=== PATIENT | female | born 1930 | race Caucasian/White ===

== ENCOUNTER 2021-02-05 13:46 | Emergency (ER) | payer MEDICARE, OTHER ==
[~2021-02-05] VITALS: Ht 162.6 cm; Wt 40.4 kg
--- NOTE | 2021-02-05 14:00 | NUR ---
JESSIE RAAyan From home "constipated xcouple days was seen in [place] yesterday. Patient a/ox3, breathing even and unlabored, no sob noted. Needs attended.
[2021-02-05] MEDS ORDERED: IV NS 0.9% 500 ML BAG IV ONE (14:30)
[2021-02-05 14:53] LABS: BASOPHILS % (AUTO) 0.8 % (0.0-2.0); EOSINOPHILS % (AUTO) 1.5 % (0.0-6.0); HEMATOCRIT 31 % (33-45); HEMOGLOBIN 10.4 g/dL (11.5-14.8); LYMPHOCYTES % (AUTO) 16.9 % (20.0-44.0); MEAN CORPUSCULAR HGB CONC 33 g/dl (31.0-36.0); MEAN CORPUSCULAR VOLUME 93 fL (82-100); MONOCYTES # (AUTO) 0.4 K/uL (0.1-1.30); MONOCYTES % (AUTO) 7.4 % (2.0-12.0); NEUTROPHILS # (AUTO) 4.4 K/uL (1.8-8.9); NEUTROPHILS % (AUTO) 73.4 % (43.0-81.0); PLATELET COUNT (AUTO) 343 K/uL (150-450); RED BLOOD CELL COUNT(AUTO) 3.36 MIL/uL (4.0-5.2); WHITE BLOOD COUNT (AUTO) 5.9 K/uL (4.3-11.0)
[2021-02-05 14:59] LABS: CALCIUM, SERUM 8.6 mg/dL (8.5-10.1); CARBON DIOXIDE 37 mmol/L (21-32); CHLORIDE 88 mmol/L (98-107); CREATININE 0.5 mg/dL (0.6-1.3); GLUCOSE 135 mg/dL (74-106); POTASSIUM 4.4 mmol/L (3.5-5.1); SODIUM SERUM 128 mmol/L (136-145); UREA NITROGEN, BLOOD 11 mg/dL (7-18)
[2021-02-05 15:16] LABS: ALANINE AMINOTRANSFERASE 19 U/L (12-78); ALBUMIN 2.9 g/dL (3.4-5.0); ALKALINE PHOSPHATASE 89 U/L (46-116); ASPARTATE AMINOTRANSFERASE 17 U/L (15-37); BILIRUBIN,DIRECT 0.3 mg/dL (0.0-0.2); BILIRUBIN,TOTAL 0.7 mg/dL (0.2-1.0); LIPASE 23 U/L (73-393); TOTAL PROTEIN, SERUM 6.6 g/dL (6.4-8.2)
[2021-02-05] MEDS ORDERED: CARV3.122 PO (15:24)
[2021-02-05] MEDS ORDERED: FOLI0.4T6 PO (15:24)
[2021-02-05] MEDS ORDERED: SPIR25TA6 PO (15:24)
[2021-02-05] MEDS ORDERED: METF-837 PO (15:24)
[2021-02-05] MEDS ORDERED: WARF3TAB59 PO (15:24)
[2021-02-05] MEDS ORDERED: PRED5TAB PO (15:24)
[2021-02-05 16:37] LABS: BILIRUBIN,URINE NEGATIVE (NEGATIVE); COLOR,URINE YELLOW (YELLOW); LEUKOCYTE ESTERASE ,URINE MODERATE (NEGATIVE); NITRITE, URINE POSITIVE (NEGATIVE); PROTEIN,URINE 30 mg/dl (NEGATIVE); UGLUCOSE NEGATIVE (NEGATIVE); UROBILINOGEN,URINE 0.2 EU/dL (0.2)
[2021-02-05] MEDS ORDERED: CEFTRIAXONE 1 G in IV D5W 50 ML IV ONE (17:00)
[2021-02-05 17:01] LABS: BACTERIA,URINE 1+ /HPF (None Seen); CALCIUM OXALATE CRYSTALS,UR Few /HPF (None Seen)
[2021-02-05] MEDS ORDERED: CEFTRIAXONE 1GM BAG (ER ONLY) 50 ML IV ONE (17:20)
--- NOTE | 2021-02-05 17:43 | NUR ---
Patient a/ox4, kept comfortable. Needs attended.
[2021-02-05] MEDS ORDERED: CEPH500C2 PO (17:49)
[2021-02-05] MEDS ORDERED: POLY17PO4 PO (17:49)
--- NOTE | 2021-02-05 18:22 | NUR ---
PER PATIENT, "SHE CANNOT PEE" INFORMED DR. MADERA, RECEIVED ORDER FOR COLEMAN CATHETER.
--- NOTE | 2021-02-05 18:29 | NUR ---
COLEMAN CATHETER INSERTED VIA STERILE TECHNIQUE. FR16. URINE OUTPUT 100ML.
--- NOTE | 2021-02-05 18:45 | NUR ---
LAUREN [phone] JONO [phone]
--- NOTE | 2021-02-05 18:47 | NUR ---
CHEYENNE DAUGHTER [phone] WILL CALL US BACK FOR CALENDER LET OFF OPERATOR TO OPEN HOUSE DOOR.
--- NOTE | 2021-02-05 18:54 | NUR ---
[facility] CALLED ETA 30-45 MINS.
--- NOTE | 2021-02-05 19:00 | NUR ---
TOTAL URINE OUTPUT 600ML.
--- NOTE | 2021-02-05 19:10 | NUR ---
DISCHARGE INSTRUCTIONS PROVIDED OVER THE PHONE TO PATIENT'S DAUGHTER. PATIENT WILL BE DISCHARGED WITH A COLEMAN CATHETER AND NEEDS TO FOLLOW UP WITH A PRIMARY CARE DOCTOR. PATIENT'S PRESCRIPTIONS FOR UTI AND CONSTIPATION. WAITING FOR TRANSPORTATION AT THIS TIME.
--- NOTE | 2021-02-05 19:45 | NUR ---
report given to transportation. pt being transferred to home via ambulance, in stable condition with rx given.
[2021-02-05 19:46] VITALS: BP 135/70
== END 2021-02-05 20:14 | disposition home or self-care (01) ==
LOC: ER 13:47
DX: N39.0 Urinary tract infection, site not specified (principal); K59.00 Constipation, unspecified; K80.20 Calculus of gallbladder without cholecystitis without obstruction; K86.89 Other specified diseases of pancreas; E87.1 Hypo-osmolality and hyponatremia; E87.3 Alkalosis; D64.9 Anemia, unspecified; E11.9 Type 2 diabetes mellitus without complications; E78.5 Hyperlipidemia, unspecified; I11.0 Hypertensive heart disease with heart failure; I50.9 Heart failure, unspecified; M81.0 Age-related osteoporosis without current pathological fracture; I48.91 Unspecified atrial fibrillation; Z79.899 Other long term (current) drug therapy; Z79.01 Long term (current) use of anticoagulants; Z79.84 Long term (current) use of oral hypoglycemic drugs
CPT/HCPCS: 36415; 71045; 74176; 80048; 80076; 81001; 83690; 84484; 85025; 85730; 87086; 87186; 93005; 96365; 99285; J0696 ×2; J7040; J7060

== ENCOUNTER 2021-03-24 20:32 | Inpatient (IN) | payer MEDICARE, OTHER ==
[~2021-03-24] VITALS: Ht 167.6 cm; Wt 83.9 kg
[~2021-03-24 20:32] MED LIST: CARV3.122 PO; CEPH500C2 PO; FOLI0.4T6 PO; METF-837 PO; POLY17PO4 PO; PRED5TAB PO; SPIR25TA6 PO; WARF3TAB59 PO
--- NOTE | 2021-03-24 20:44 | NUR ---
PATIENT BIBRA C/O HAVING SHORTNESS OF BREATH. PER CARPET REPAIRER PATIENTS O2SAT AT HOME WAS 88, THEN 92. PATIENT ALERT AND ORIENTED X3. PATIENT ARRIVED ON A STRETCHER UNKNOWN IF SHE CAN AMBULATE.
[2021-03-24] MEDS ORDERED: LIDOCAINE 1%-EPI 1:100,000 20 ML VIAL ONE (20:57)
[2021-03-24 21:42] LABS: BASOPHILS % (AUTO) 1.1 % (0.0-2.0); HEMATOCRIT 37 % (33-45); HEMOGLOBIN 11.9 g/dL (11.5-14.8); LYMPHOCYTES # (AUTO) 1.4 K/uL (0.8-4.8); LYMPHOCYTES % (AUTO) 31.4 % (20.0-44.0); MEAN CORPUSCULAR HGB CONC 32 g/dl (31.0-36.0); MEAN CORPUSCULAR VOLUME 92 fL (82-100); MONOCYTES # (AUTO) 0.3 K/uL (0.1-1.30); MONOCYTES % (AUTO) 7.6 % (2.0-12.0); NEUTROPHILS # (AUTO) 2.5 K/uL (1.8-8.9); NEUTROPHILS % (AUTO) 56.9 % (43.0-81.0); PLATELET COUNT (AUTO) 226 K/uL (150-450); RED BLOOD CELL COUNT(AUTO) 3.99 MIL/uL (4.0-5.2); WHITE BLOOD COUNT (AUTO) 4.3 K/uL (4.3-11.0)
[2021-03-24 21:52] LABS: CALCIUM, SERUM 8.6 mg/dL (8.5-10.1); CARBON DIOXIDE 33 mmol/L (21-32); CHLORIDE 92 mmol/L (98-107); CREATININE 0.5 mg/dL (0.6-1.3); GLUCOSE 125 mg/dL (74-106); POTASSIUM 4.4 mmol/L (3.5-5.1); SODIUM SERUM 127 mmol/L (136-145); UREA NITROGEN, BLOOD 8 mg/dL (7-18)
--- NOTE | 2021-03-24 22:25 | NUR ---
COVID SWAB DONE AND SENT TO LAB
[2021-03-24] MEDS ORDERED: FUROSEMIDE 20 MG/2 ML VIAL IV ONE (22:30)
[2021-03-24] MEDS ORDERED: ONDANSETRON HCL/PF 4 MG/2 ML VIAL IVP PRN (23:30)
[2021-03-24] MEDS ORDERED: MAG HYDROX/AL HYDROX/SIMETH 30 ML UDC PO PRN (23:30)
[2021-03-24] MEDS ORDERED: Z GUARD REMEDY 2 OZ OINT TP PRN (23:30)
[2021-03-24] MEDS ORDERED: ZOLPIDEM TARTRATE 5 MG TABLET PO PRN (23:30)
[2021-03-24] MEDS ORDERED: MAGNESIUM HYDROXIDE 30 ML UDC PO PRN (23:30)
[2021-03-24] MEDS ORDERED: ACETAMINOPHEN 325 MG TABLET PO PRN (23:30)
--- NOTE | 2021-03-25 01:08 | NUR ---
tele [phone]
--- NOTE | 2021-03-25 01:48 | NUR ---
REPORT GIVEN TO REYNA GUZMAN
--- NOTE | 2021-03-25 02:13 | NUR ---
TRANSFERRING PT TO 324 PER ACLS
[2021-03-25 02:30] VITALS: BP 129/65
--- NOTE | 2021-03-25 03:47 | NUR ---
ADMISSION NOTES RECEIVED PT VIA BRIDGER ACCOMPANIED BY 2 ER PERSONNEL @0215. AOx4. ABLE TO MAKE NEEDS KNOWN. ON 3 L/MIN VIA NASAL CANNULA AND TOLERATING WELL. NO SOB NOTED. NO S/SX OF RESPIRATORY DISTRESS NOTED. IV ACCESS IN L FA#20. IV IS INTACT, PATENT, AND FLUSHING WELL. COLEMAN CATHETER DRAINING CLEAR YELLOW URINE. TELE MONITOR DETECTS ATRIAL FIBRILLATION WITH RATE OF 40-55. SAFETY PRECAUTIONS IN PLACE: BED IN LOWEST, LOCKED POSITION, SIDERAILS UPx2, AND BRAKES ON. TABLE AND CALL LIGHT WITHIN REACH. WILL CONTINUE TO MONITOR.
[2021-03-25 04:00] VITALS: BP 127/53
--- NOTE | 2021-03-25 06:58 | NUR ---
RN CLOSING NOTES PT IN BED, ASLEEP, AWAKENS TO VERBAL STIMULI. AOx4. ABLE TO MAKE NEEDS KNOWN. ON 3 L/MIN VIA NASAL CANNULA AND TOLERATING WELL. NO SOB NOTED. NO S/SX OF RESPIRATORY DISTRESS NOTED. IV ACCESS IN L FA#20. IV IS INTACT, PATENT, AND FLUSHING WELL. COLEMAN CATHETER DRAINING CLEAR YELLOW URINE. TELE MONITOR DETECTS ATRIAL FIBRILLATION WITH RATE OF 40-55. ALL NEEDS MET. PT KEPT CLEAN AND DRY. SAFETY PRECAUTIONS IN PLACE: BED IN LOWEST, LOCKED POSITION, SIDERAILS UPx2, AND BRAKES ON. TABLE AND CALL LIGHT WITHIN REACH. WILL ENDORSE TO ONCOMING SHIFT FOR LINNEA.
--- NOTE | 2021-03-25 07:15 | NUR ---
UNEMPLOYMENT CLAIMS ADJUDICATOR OPENING NOTE PATIENT RECEIVED AWAKE LYING IN BED. PATIENT A/OX3. NO S/S OF DISTRESS. NO PAIN REPORTED AT THIS TIME. IV LFA WRIST #20 G SL. SAFETY MEASURES IN PLACE: BED AT LOWEST POSITION, RAILS UP X2, CALL CALDWELL WITHIN REACH. WILL CONTINUE TO MONITOR PATIENT THROUGHOUT SHIFT.
[2021-03-25 07:53] LABS: BASOPHILS % (AUTO) 1.1 % (0.0-2.0); EOSINOPHILS % (AUTO) 5.4 % (0.0-6.0); HEMATOCRIT 33 % (33-45); LYMPHOCYTES # (AUTO) 1.5 K/uL (0.8-4.8); LYMPHOCYTES % (AUTO) 35.5 % (20.0-44.0); MEAN CORPUSCULAR HGB CONC 33 g/dl (31.0-36.0); MEAN CORPUSCULAR VOLUME 92 fL (82-100); MONOCYTES # (AUTO) 0.5 K/uL (0.1-1.30); MONOCYTES % (AUTO) 12.3 % (2.0-12.0); NEUTROPHILS % (AUTO) 45.7 % (43.0-81.0); PLATELET COUNT (AUTO) 202 K/uL (150-450); RED BLOOD CELL COUNT(AUTO) 3.59 MIL/uL (4.0-5.2); WHITE BLOOD COUNT (AUTO) 4.3 K/uL (4.3-11.0)
[2021-03-25 08:43] LABS: ALBUMIN 2.6 g/dL (3.4-5.0); BILIRUBIN,TOTAL 0.4 mg/dL (0.2-1.0); CALCIUM, SERUM 8.1 mg/dL (8.5-10.1); CREATININE 0.6 mg/dL (0.6-1.3); MAGNESIUM 1.4 mg/dL (1.8-2.4); PHOSPHORUS 3.5 mg/dL (2.5-4.9); POTASSIUM 4.1 mmol/L (3.5-5.1); TOTAL PROTEIN, SERUM 5.5 g/dL (6.4-8.2)
[2021-03-25] MEDS: PANTOPRAZOLE 40 MG TABLET.DR PO SCH (09:33)
[2021-03-25] MEDS: predniSONE 5 MG TABLET PO SCH (09:33)
[2021-03-25] MEDS: SPIRONOLACTONE 25 MG TABLET PO SCH (09:33)
[2021-03-25] MEDS: FUROSEMIDE 40 MG/4 ML VIAL IV SCH (09:33)
[2021-03-25] MEDS ORDERED: MAGNESIUM OXIDE 400 MG TABLET PO ONE (11:00)
[2021-03-25] MEDS: ACETYLCYSTEINE 10% SOLN 400 MG/4 ML VIAL NEB SCH ×2 (15:28→23:49)
[2021-03-25] MEDS: METFORMIN XR 500 MG TAB.SR.24H PO SCH (17:26)
--- NOTE | 2021-03-25 18:32 | NUR ---
ROD BENDING MACHINE OPERATOR CLOSING NOTE PATIENT IS AWAKE IN HER BED. NO S/S OF DISTRESS; NO PAIN NOTED; COMFORT MEASURES PROVIDED. SKIN IS CLEAN, DRY, AND INTACT. IV LFA 20G. SAFETY MEASURES IN PLACE: BED AT LOWEST POSITION; RAILS UP X2; CALL CALDWELL WITHIN REACH.
--- NOTE | 2021-03-25 19:30 | NUR ---
TELE/RN OPENING NOTE RECEIVED PATIENT RESTING IN BED. AWAKE, ALERT AND ORIENTED X 3. ABLE TO MAKE NEEDS KNOWN. DENIES PAIN AT THIS TIME. CONTINUES ON O2 2L VIA NC WITH NO S/SX OF RESPIRATORY DISTRESS NOTED. IV ACCESS TO LEFT FOREARM #20G INTACT, PATENT AND SALINE LOCKED. CONTINUES ON TELE MONITOR WITH CURRENT READING AFIB HR 72. COLEMAN CATHETER IN PLACE DRAINING CLEAR, YELLOW URINE TO GRAVITY. CALL LIGHT WITHIN REACH. ASPIRATION, FALL AND SAFETY PRECAUTIONS MAINTAINED. WILL CONTINUE TO MONITOR.
[2021-03-25] MEDS: IPRATROPIUM NEB FS 0.5 MG/2.5 ML AMPUL.NEB NEB SCH (19:40)
[2021-03-25 20:00] VITALS: BP 110/74
[2021-03-26] MEDS: IPRATROPIUM NEB FS 0.5 MG/2.5 ML AMPUL.NEB NEB SCH ×4 (01:30→20:07)
--- NOTE | 2021-03-26 01:36 | NUR ---
RT NOTE PATIENT REFUSED BREATHING TREATMENT , PATIENT STABLE ON 2 LITERS NASAL CANNULA, NO SOB NOTED AT THIS TIME, NOTIFIED RN. Addendum: 03/26/21 at 0139 by ADE SAHA RT Amended: Links added.
--- NOTE | 2021-03-26 06:30 | NUR ---
TELE/RN CLOSING NOTE PATIENT CURRENTLY SLEEPING IN BED. ALERT AND ORIENTED X 3. ABLE TO MAKE NEEDS KNOWN. DENIES PAIN AT THIS TIME. CONTINUES ON O2 2L VIA NC WITH NO S/SX OF RESPIRATORY DISTRESS NOTED. IV ACCESS TO LEFT FOREARM #20G INTACT, PATENT AND SALINE LOCKED. CONTINUES ON TELE MONITOR WITH CURRENT READING SR HR 77. COLEMAN CATHETER IN PLACE DRAINING CLEAR, YELLOW URINE TO GRAVITY. CALL LIGHT WITHIN REACH. ASPIRATION, FALL AND SAFETY PRECAUTIONS MAINTAINED. WILL ENDORSE PLAN OF CARE TO ONCOMING SHIFT.
[2021-03-26 06:45] LABS: CALCIUM, SERUM 8.3 mg/dL (8.5-10.1); CREATININE 0.8 mg/dL (0.6-1.3); EOSINOPHILS % (AUTO) 6.6 % (0.0-6.0); HEMATOCRIT 35 % (33-45); HEMOGLOBIN 11.6 g/dL (11.5-14.8); LYMPHOCYTES # (AUTO) 1.3 K/uL (0.8-4.8); LYMPHOCYTES % (AUTO) 33.2 % (20.0-44.0); MEAN CORPUSCULAR HGB CONC 33 g/dl (31.0-36.0); MEAN CORPUSCULAR VOLUME 93 fL (82-100); MONOCYTES # (AUTO) 0.5 K/uL (0.1-1.30); MONOCYTES % (AUTO) 12.6 % (2.0-12.0); NEUTROPHILS # (AUTO) 1.9 K/uL (1.8-8.9); NEUTROPHILS % (AUTO) 46.6 % (43.0-81.0); PLATELET COUNT (AUTO) 240 K/uL (150-450); POTASSIUM 3.7 mmol/L (3.5-5.1); RED BLOOD CELL COUNT(AUTO) 3.79 MIL/uL (4.0-5.2); WHITE BLOOD COUNT (AUTO) 4.1 K/uL (4.3-11.0)
[2021-03-26] MEDS: ACETYLCYSTEINE 10% SOLN 400 MG/4 ML VIAL NEB SCH ×3 (07:56→23:50)
[2021-03-26 08:00] VITALS: BP 139/61
[2021-03-26] MEDS: PANTOPRAZOLE 40 MG TABLET.DR PO SCH (09:15)
[2021-03-26] MEDS: predniSONE 5 MG TABLET PO SCH (09:16)
[2021-03-26] MEDS: FOLIC ACID 1 MG TABLET PO SCH (09:16)
[2021-03-26] MEDS: METFORMIN XR 500 MG TAB.SR.24H PO SCH ×2 (09:16→17:34)
[2021-03-26] MEDS: SPIRONOLACTONE 25 MG TABLET PO SCH (09:16)
[2021-03-26] MEDS: FUROSEMIDE 40 MG/4 ML VIAL IV SCH (11:12)
[2021-03-26] MEDS: Magnesium 1GM/D5W 100ML PREMIX 100 ML IV SCH ×2 (11:13→13:45)
--- NOTE | 2021-03-26 15:31 | NUR ---
RN OPENING NOTES PATIENT AWAKE IN BED RESTING. A/O X3. NO S/S OF PAIN NOTED AT THIS TIME. ON OXYGEN 2L VIA NC, NO DISTRESS OR SHORTNESS OF BREATH NOTED, BREATHING EVEN/UNLABORED. IV R L FOREARM #20G SL INTACT AND PATENT. PATIENT WITH EXTERNAL ELECTRONICS TECH WITH CURRENT READING OF AFIB. NO CARDIAC DISTRESS NOTED. FALL AND SAFETY MEASURES IN PLACE, BED ALARM ON, BED IN LOW AND LOCK POSITION, CALL LIGHT AND TABLE WITHIN EASY REACH, SIDE RAILS UP X2. WILL CONTINUE TO MONITOR.
[2021-03-26 16:00] VITALS: BP 115/56
--- NOTE | 2021-03-26 19:07 | NUR ---
RN CLOSING NOTE PATIENT AWAKE IN BED RESTING. A/O X3. NO S/S OF PAIN NOTED AT THIS TIME. ON OXYGEN 2L VIA NC, NO DISTRESS OR SHORTNESS OF BREATH NOTED, BREATHING EVEN/UNLABORED. IV L FOREARM #20G SL, INTACT AND PATENT. COLEMAN NOTED WITH YELLOW URINE OUTPUT OF 240ML. PATIENT WITH EXTERNAL STERILE PROCESSING TECHNOLOGIST WITH CURRENT READING OF AFIB HR 50. NO CARDIAC DISTRESS NOTED. FALL AND SAFETY MEASURES IN PLACE, BED ALARM ON, BED IN LOW AND LOCK POSITION, CALL LIGHT AND TABLE WITHIN EASY REACH, SIDE RAILS UP X2. WILL ENDORSE CARE TO ESTATE AND TRUST TAX PRINCIPAL NURSE.
--- NOTE | 2021-03-26 19:40 | NUR ---
TELE/RN OPENING NOTE RECEIVED PATIENT RESTING IN BED. AWAKE, ALERT AND ORIENTED X 3. ABLE TO MAKE NEEDS KNOWN. DENIES PAIN AT THIS TIME. CONTINUES ON O2 2L VIA NC WITH NO S/SX OF RESPIRATORY DISTRESS NOTED. IV ACCESS TO LEFT FOREARM #20G INTACT, PATENT AND SALINE LOCKED. CONTINUES ON TELE MONITOR WITH CURRENT READING AFIB HR 82. COLEMAN CATHETER IN PLACE DRAINING CLEAR, YELLOW URINE TO GRAVITY. CALL LIGHT WITHIN REACH. ASPIRATION, FALL AND SAFETY PRECAUTIONS MAINTAINED. WILL CONTINUE TO MONITOR.
[2021-03-26 20:00] VITALS: BP 126/59
[2021-03-27] MEDS: IPRATROPIUM NEB FS 0.5 MG/2.5 ML AMPUL.NEB NEB SCH ×4 (01:48→20:18)
--- NOTE | 2021-03-27 05:09 | NUR ---
RT PT RECVD AWAKE AND VERBAL ON 2 LPM NC, BREATHING TX GIVEN AND PT LEÓN WELL. NO SOB OR RESPIRATORY DISTRESS NOTED THROUGHOUT SHIFT.
--- NOTE | 2021-03-27 06:30 | NUR ---
TELE/RN CLOSING NOTE PATIENT CURRENTLY RESTING IN BED. ALERT AND ORIENTED X 3. ABLE TO MAKE NEEDS KNOWN. DENIES PAIN AT THIS TIME. CONTINUES ON O2 2L VIA NC WITH NO S/SX OF RESPIRATORY DISTRESS NOTED. IV ACCESS TO LEFT FOREARM #20G INTACT, PATENT AND SALINE LOCKED. CONTINUES ON TELE MONITOR WITH CURRENT READING SR. COLEMAN CATHETER IN PLACE DRAINING CLEAR, YELLOW URINE TO GRAVITY. CALL LIGHT WITHIN REACH. ASPIRATION, FALL AND SAFETY PRECAUTIONS MAINTAINED. WILL ENDORSE PLAN OF CARE TO ONCOMING SHIFT.
[2021-03-27 06:33] LABS: BASOPHILS % (AUTO) 0.8 % (0.0-2.0); CALCIUM, SERUM 8.9 mg/dL (8.5-10.1); CREATININE 0.8 mg/dL (0.6-1.3); EOSINOPHILS % (AUTO) 4.9 % (0.0-6.0); HEMATOCRIT 35 % (33-45); HEMOGLOBIN 11.5 g/dL (11.5-14.8); LYMPHOCYTES # (AUTO) 1.5 K/uL (0.8-4.8); LYMPHOCYTES % (AUTO) 30.9 % (20.0-44.0); MEAN CORPUSCULAR HGB CONC 33 g/dl (31.0-36.0); MEAN CORPUSCULAR VOLUME 92 fL (82-100); MONOCYTES # (AUTO) 0.5 K/uL (0.1-1.30); MONOCYTES % (AUTO) 10.2 % (2.0-12.0); NEUTROPHILS # (AUTO) 2.6 K/uL (1.8-8.9); NEUTROPHILS % (AUTO) 53.2 % (43.0-81.0); PLATELET COUNT (AUTO) 237 K/uL (150-450); POTASSIUM 3.6 mmol/L (3.5-5.1); RED BLOOD CELL COUNT(AUTO) 3.77 MIL/uL (4.0-5.2); WHITE BLOOD COUNT (AUTO) 4.8 K/uL (4.3-11.0)
--- NOTE | 2021-03-27 07:30 | NUR ---
CURRICULUM AND INSTRUCTION DIRECTOR OPENING NOTE RECEIVED PT AWAKE IN BED. A/O X 3. O2 2L VIA NC WITH O2 SAT AT 98%. NO SOB OR S/S OF RESPIRATORY DISTRESS. ON EXTERNAL CARDIAC MONITORING, AFIB HR 55-60 BPM. IV ACCESS TO LEFT FOREARM #20G, INTACT AND PATENT. COLEMAN CATHETER IN PLACE DRAINING CLEAR, YELLOW URINE TO GRAVITY. SAFETY PRECAUTIONS MAINTAINED. BED IN LOWEST LOCKED POSITION, SIDE RAILS UP X 2, HOB ELEVATED, AND CALL LIGHT AND TABLE WITHIN REACH. WILL CONTINUE WITH PLAN OF CARE.
[2021-03-27] MEDS: ACETYLCYSTEINE 10% SOLN 400 MG/4 ML VIAL NEB SCH ×3 (07:54→23:48)
[2021-03-27] MEDS: PANTOPRAZOLE 40 MG TABLET.DR PO SCH (08:10)
[2021-03-27] MEDS: FOLIC ACID 1 MG TABLET PO SCH (08:58)
[2021-03-27] MEDS: SPIRONOLACTONE 25 MG TABLET PO SCH (08:59)
[2021-03-27] MEDS: predniSONE 5 MG TABLET PO SCH (08:59)
[2021-03-27] MEDS: FUROSEMIDE 40 MG/4 ML VIAL IV SCH (08:59)
[2021-03-27] MEDS: METFORMIN XR 500 MG TAB.SR.24H PO SCH ×2 (08:59→16:04)
[2021-03-27 16:00] VITALS: BP 113/55
--- NOTE | 2021-03-27 18:57 | NUR ---
MANAGER DATA WAREHOUSING CLOSING NOTE PT IS AWAKE IN BED. A/O X3. PT ON 2LPM O2 VIA NC TOLERATING WELL. NO SOB OR S/S OF RESPIRATORY DISTRESS. PT ON EXTERNAL SUPERVISOR TANK CLEANING READING AFIB 80 BPM. PT HAS NO C/O PAIN OR DISCOMFORT AT THIS TIME. IV ACCESS IN LFA #20, INTACT AND PATENT. COLEMAN CATH IN PLACE DRAINING CLEAR, YELLOW URINE. ALL NEEDS HAVE BEEN MET. SAFETY PRECAUTIONS MAINTAINED AT ALL TIMES. BED IN LOWEST LOCKED POSITION, HOB ELEVATED, SIDE RAILS UP X2. CALL LIGHT AND TABLE WITHIN REACH. WILL ENDORSE TO ONCOMING NURSE FOR LINNEA.
--- NOTE | 2021-03-27 19:30 | NUR ---
TELE/RN OPENING NOTE RECEIVED PATIENT RESTING IN BED. AWAKE, ALERT AND ORIENTED X 3. ABLE TO MAKE NEEDS KNOWN. DENIES PAIN AT THIS TIME. CONTINUES ON 2L O2 VIA NC WITH NO S/SX OF RESPIRATORY DISTRESS NOTED. IV ACCESS TO LEFT FOREARM #20G INTACT, PATENT AND SALINE LOCKED. CONTINUES ON TELE MONITOR WITH CURRENT READING AFIB. COLEMAN CATHETER IN PLACE DRAINING CLEAR, YELLOW URINE TO GRAVITY. CALL LIGHT WITHIN REACH. ASPIRATION, FALL AND SAFETY PRECAUTIONS MAINTAINED. WILL CONTINUE TO MONITOR.
[2021-03-27 20:00] VITALS: BP 106/58
[2021-03-28] VITALS: BP 110/60
[2021-03-28] MEDS: IPRATROPIUM NEB FS 0.5 MG/2.5 ML AMPUL.NEB NEB SCH ×4 (01:35→20:47)
[2021-03-28 04:00] VITALS: BP 98/56
--- NOTE | 2021-03-28 06:40 | NUR ---
TELE/RN CLOSING NOTE PATIENT CURRENTLY SLEEPING IN BED. ALERT AND ORIENTED X 3. ABLE TO MAKE NEEDS KNOWN. DENIES PAIN AT THIS TIME. CONTINUES ON 2L O2 VIA NC WITH NO S/SX OF RESPIRATORY DISTRESS NOTED. IV ACCESS TO LEFT FOREARM #20G INTACT, PATENT AND SALINE LOCKED. CONTINUES ON TELE MONITOR WITH CURRENT READING CONTROLLED AFIB HR 71. COLEMAN CATHETER IN PLACE DRAINING CLEAR, YELLOW URINE TO GRAVITY. CALL LIGHT WITHIN REACH. ASPIRATION, FALL AND SAFETY PRECAUTIONS MAINTAINED. WILL ENDORSE PLAN OF CARE TO ONCOMING SHIFT.
[2021-03-28 06:56] LABS: BASOPHILS % (AUTO) 0.5 % (0.0-2.0); EOSINOPHILS % (AUTO) 2.6 % (0.0-6.0); HEMATOCRIT 32 % (33-45); HEMOGLOBIN 10.8 g/dL (11.5-14.8); LYMPHOCYTES # (AUTO) 2.1 K/uL (0.8-4.8); LYMPHOCYTES % (AUTO) 30.9 % (20.0-44.0); MEAN CORPUSCULAR HGB CONC 33 g/dl (31.0-36.0); MEAN CORPUSCULAR VOLUME 92 fL (82-100); MONOCYTES # (AUTO) 0.8 K/uL (0.1-1.30); MONOCYTES % (AUTO) 11.5 % (2.0-12.0); NEUTROPHILS # (AUTO) 3.6 K/uL (1.8-8.9); NEUTROPHILS % (AUTO) 54.5 % (43.0-81.0); PLATELET COUNT (AUTO) 222 K/uL (150-450); WHITE BLOOD COUNT (AUTO) 6.7 K/uL (4.3-11.0)
--- NOTE | 2021-03-28 07:06 | NUR ---
BUCKLE SEWER MACHINE OPENING NOTE RECEIVED PT AWAKE IN BED. A/O X 3. O2 2L VIA NC WITH O2 SAT AT 97%. NO SOB OR S/S OF RESPIRATORY DISTRESS. ON EXTERNAL CARDIAC MONITORING, AFIB HR 70 BPM. IV ACCESS TO LEFT FOREARM #20G, INTACT AND PATENT. COLEMAN CATHETER IN PLACE DRAINING CLEAR, YELLOW URINE TO GRAVITY. SAFETY PRECAUTIONS MAINTAINED. BED IN LOWEST LOCKED POSITION, SIDE RAILS UP X 2, HOB ELEVATED, AND CALL LIGHT AND TABLE WITHIN REACH. WILL CONTINUE WITH PLAN OF CARE.
[2021-03-28] MEDS: PANTOPRAZOLE 40 MG TABLET.DR PO SCH (07:30)
[2021-03-28 07:47] LABS: CALCIUM, SERUM 8.7 mg/dL (8.5-10.1); CREATININE 0.9 mg/dL (0.6-1.3); POTASSIUM 3.6 mmol/L (3.5-5.1)
[2021-03-28 08:00] VITALS: BP 133/51
[2021-03-28] MEDS: ACETYLCYSTEINE 10% SOLN 400 MG/4 ML VIAL NEB SCH ×2 (08:11→12:59)
[2021-03-28] MEDS: predniSONE 5 MG TABLET PO SCH (08:13)
[2021-03-28] MEDS: FOLIC ACID 1 MG TABLET PO SCH (08:13)
[2021-03-28] MEDS: FUROSEMIDE 40 MG/4 ML VIAL IV SCH (08:13)
[2021-03-28] MEDS: METFORMIN XR 500 MG TAB.SR.24H PO SCH ×2 (08:13→17:47)
[2021-03-28] MEDS: SPIRONOLACTONE 25 MG TABLET PO SCH (08:14)
[2021-03-28 12:00] VITALS: BP 118/57
[2021-03-28 16:00] VITALS: BP 114/64
[2021-03-28] MEDS ORDERED: acetaZOLAMIDE 250 MG TABLET PO ONE (16:30)
--- NOTE | 2021-03-28 18:26 | NUR ---
INDUSTRIAL PIPEFITTER JOURNEYMAN CLOSING NOTE PT AWAKE IN BED. A/O X 3. O2 2L VIA NC WITH O2 SAT AT 97%. NO SOB OR S/S OF RESPIRATORY DISTRESS. ON EXTERNAL CARDIAC MONITORING, AFIB HR 80 BPM. IV ACCESS TO LEFT FOREARM #20G, INTACT AND PATENT. COLEMAN CATHETER IN PLACE DRAINING CLEAR, YELLOW URINE TO GRAVITY. ALL NEEDS MET AT THIS TIME. SAFETY PRECAUTIONS MAINTAINED AT ALL TIMES. BED IN LOWEST LOCKED POSITION, SIDE RAILS UP X 2, HOB ELEVATED, AND CALL LIGHT AND TABLE WITHIN REACH. WILL ENDORSE TO ONCOMING SHIFT FOR LINNEA.
--- NOTE | 2021-03-28 19:30 | NUR ---
FRONT LOADER RESIDENTIAL DRIVER OPENING NOTES RECEIVED PT AWAKE IN BED. A/O X 3. O2 2L VIA NC, LEÓN. WELL. NO SOB OR S/S OF RESPIRATORY DISTRESS. ON EXTERNAL CARDIAC MONITORING, AFIB HR 64 BPM. IV ACCESS TO LEFT FOREARM #20G, INTACT AND PATENT. COLEMAN CATHETER IN PLACE DRAINING CLEAR, YELLOW URINE TO GRAVITY. ALL NEEDS MET AT THIS TIME. SAFETY PRECAUTIONS MAINTAINED AT ALL TIMES. BED IN LOWEST LOCKED POSITION, SIDE RAILS UP X 2, HOB ELEVATED, AND CALL LIGHT AND TABLE WITHIN REACH. WILL CONTINUE TO MONITOR PT. ACCORDINGLY.
[2021-03-28 20:22] VITALS: BP 99/48
[2021-03-29 00:16] VITALS: BP 111/46
[2021-03-29] MEDS: ACETYLCYSTEINE 10% SOLN 400 MG/4 ML VIAL NEB SCH ×3 (00:30→13:58)
[2021-03-29] MEDS: IPRATROPIUM NEB FS 0.5 MG/2.5 ML AMPUL.NEB NEB SCH ×4 (00:30→19:30)
[2021-03-29 04:52] VITALS: BP 125/68
[2021-03-29 06:40] LABS: BASOPHILS # (AUTO) 0.1 K/uL (0.0-0.2); BASOPHILS % (AUTO) 1.2 % (0.0-2.0); EOSINOPHILS % (AUTO) 6.6 % (0.0-6.0); HEMATOCRIT 32 % (33-45); HEMOGLOBIN 10.8 g/dL (11.5-14.8); LYMPHOCYTES # (AUTO) 1.8 K/uL (0.8-4.8); LYMPHOCYTES % (AUTO) 36.9 % (20.0-44.0); MEAN CORPUSCULAR HGB CONC 33 g/dl (31.0-36.0); MEAN CORPUSCULAR VOLUME 93 fL (82-100); MONOCYTES # (AUTO) 0.6 K/uL (0.1-1.30); MONOCYTES % (AUTO) 13.2 % (2.0-12.0); NEUTROPHILS % (AUTO) 42.1 % (43.0-81.0); PLATELET COUNT (AUTO) 206 K/uL (150-450); RED BLOOD CELL COUNT(AUTO) 3.48 MIL/uL (4.0-5.2); WHITE BLOOD COUNT (AUTO) 4.8 K/uL (4.3-11.0)
--- NOTE | 2021-03-29 06:44 | NUR ---
DATABASE ARCHITECT CLOSING NOTES RECEIVED PT AWAKE IN BED. A/O X 3. O2 2L VIA NC, LEÓN. WELL. NO SOB OR S/S OF RESPIRATORY DISTRESS. ON EXTERNAL CARDIAC MONITORING, AFIB HR 64 BPM. IV ACCESS TO LEFT FOREARM #20G, INTACT AND PATENT. COLEMAN CATHETER IN PLACE DRAINING CLEAR, YELLOW URINE TO GRAVITY WITH 480 ML CC OUTPUT. ALL NEEDS MET AT THIS TIME. SAFETY PRECAUTIONS MAINTAINED AT ALL TIMES. BED IN LOWEST LOCKED POSITION, SIDE RAILS UP X 2, HOB ELEVATED, AND CALL LIGHT AND TABLE WITHIN REACH. WILL ENDORSED PT. ACCDGLY.
[2021-03-29 06:45] LABS: CALCIUM, SERUM 8.6 mg/dL (8.5-10.1)
[2021-03-29 06:58] LABS: POTASSIUM 2.7 mmol/L (3.5-5.1)
--- NOTE | 2021-03-29 07:23 | NUR ---
RN NOTES RECEIVED A CALL FROM THE LABS. AND WAS NOTIFIED THAT POTASSIUM IS LOW 2.7, MD NOTIFIED, NO ANSWER YET, COMMUNICATED WITH DAYTIME SHIFT NURSE ABOUT THE RESULT TO FF-UP WITH AGAIN
--- NOTE | 2021-03-29 07:31 | NUR ---
BILLET STRAIGHTENER OPENING NOTE RECEIVED PT AWAKE IN BED. A/O X 3. O2 2L VIA NC WITH O2 SAT AT 97%. NO SOB OR S/S OF RESPIRATORY DISTRESS. ON EXTERNAL CARDIAC MONITORING, AFIB. IV ACCESS TO LEFT FOREARM #20G, INTACT AND PATENT. COLEMAN CATHETER IN PLACE DRAINING CLEAR, YELLOW URINE TO GRAVITY. CRITICAL POTASSIUM ENDORSE FROM SOCIAL AND POLITICAL STUDIES PROFESSOR, WILL NOTIFY DAY MD. SAFETY PRECAUTIONS MAINTAINED. BED IN LOWEST LOCKED POSITION, SIDE RAILS UP X 2, HOB ELEVATED, AND CALL LIGHT AND TABLE WITHIN REACH. WILL CONTINUE
--- NOTE | 2021-03-29 07:46 | NUR ---
RN NOTE RECEIVED ORDER FOR POTASSIUM 40 MEQ PO TID FOR CRITICAL LAB VALUE 2.7. WILL CARRY OUT
[2021-03-29 08:00] VITALS: BP 106/53
[2021-03-29] MEDS: POTASSIUM CHLORIDE 20 MEQ TAB.PRT.SR PO SCH ×3 (08:17→16:17)
[2021-03-29] MEDS: PANTOPRAZOLE 40 MG TABLET.DR PO SCH (08:17)
[2021-03-29] MEDS: predniSONE 5 MG TABLET PO SCH (08:17)
[2021-03-29] MEDS: FOLIC ACID 1 MG TABLET PO SCH (08:17)
[2021-03-29] MEDS: SPIRONOLACTONE 25 MG TABLET PO SCH (08:17)
[2021-03-29] MEDS: METFORMIN XR 500 MG TAB.SR.24H PO SCH ×2 (08:17→16:17)
[2021-03-29] MEDS: FUROSEMIDE 40 MG/4 ML VIAL IV SCH (08:39)
[2021-03-29 16:00] VITALS: BP 106/43
--- NOTE | 2021-03-29 18:28 | NUR ---
REFRIGERATION OPERATOR CLOSING NOTES PT A/OX3, BREATHING EVENLY, BILATERALLY, NO SIGN OF DISTRESS. O2 2L VIA NC, WITH 02 SAT AT 98%. IV ACCESS AT LEFT FOREARM G#20, PATENT AND INTACT. NO INFILTRATION, REDNESS, SWELLING, OR PAIN NOTED. ALL MEDICATION ADMINISTERED ORDERED. CLOEMAN CATHETER IN PLACE, DRAINING CLEAR YELLOW URINE VIA GRAVITY. PT IN SEMI GARLAND POSITION, CALL LIGHT AND BEDSIDE TABLE WITHIN REACH, BEDSIDE RAIL UP X2, SAFETY MEASURES MET. WILL HAND OFF PT TO ONCOMING RN.
--- NOTE | 2021-03-29 19:35 | NUR ---
RN MS OPENING NOTE PATIENT RECEIVED ASLEEP IN HER ROOM. NC 2LPM, NO S/S OF DISTRESS. LFA #20G. NO SIGNS OF PAIN NOTED. SAFETY MEASURES FOLLOWED: BED AT LOWEST POSITION, RAILS UPX2, CALL CALDWELL WITHIN REACH. WILL CONTINUE TO MONITOR PATIENT THROUGHOUT SHIFT.
[2021-03-29 20:17] VITALS: BP 112/72
[2021-03-30] MEDS: ACETYLCYSTEINE 10% SOLN 400 MG/4 ML VIAL NEB SCH ×4 (01:12→23:30)
[2021-03-30] MEDS: IPRATROPIUM NEB FS 0.5 MG/2.5 ML AMPUL.NEB NEB SCH ×4 (01:12→19:30)
--- NOTE | 2021-03-30 06:51 | NUR ---
MS RN CLOSING NOTE PATIENT AWAKE IN BED. A/OX3; NO S/S OF DISTRESS; BREATHING RATE (12) AND RHYTHM WNL. NO PAIN NOTED. LFA 20G SL. PATIENT REFUSED HYGIENE CARE WHEN OFFERED BY STAFF. COLEMAN IN PLACE WITH NO OBSTRUCTIONS. <25 CC OF CLEAR, DWAYNE URINE AT THIS TIME. SAFETY MEASURES IN PLACE: BED AT LOWEST POSITION, RAILS X 2, CALL CALDWELL WITHIN REACH. WILL ENDORSE TO THE DAY SHIFT FOR LINNEA.
--- NOTE | 2021-03-30 07:00 | NUR ---
MS RN OPENING NOTES: RECEIVED REPORT AT Pt BEDSIDE. Pt ALERT AND ORIENTED TO BASELINE. SITTING UP IN BED, CALM, COMMUNICATIVE AND COOPERATIVE. NAD. POTASSIUM STAT DRAW PENDING.
[2021-03-30 08:00] VITALS: BP 116/62
[2021-03-30] MEDS: PANTOPRAZOLE 40 MG TABLET.DR PO SCH (08:01)
[2021-03-30] MEDS: SPIRONOLACTONE 25 MG TABLET PO SCH (08:01)
[2021-03-30] MEDS: FOLIC ACID 1 MG TABLET PO SCH (08:01)
[2021-03-30] MEDS: predniSONE 5 MG TABLET PO SCH (08:01)
[2021-03-30] MEDS: POTASSIUM CHLORIDE 20 MEQ TAB.PRT.SR PO SCH ×3 (08:01→16:40)
[2021-03-30] MEDS: METFORMIN XR 500 MG TAB.SR.24H PO SCH ×2 (08:02→16:40)
[2021-03-30] MEDS: FUROSEMIDE 40 MG/4 ML VIAL IV SCH (10:23)
[2021-03-30 11:18] LABS: ABG BASE EXCESS 6.7 mmol/L; ABG OXYGEN SATURATION 97.9 % (92.0-98.5); ABG PCO2 57.7 mmHg (35.0-45.0); ABG PH 7.379 (7.350-7.450); ABG PO2 109.6 mmHg (75.0-100.0); COHb 0.1 % (0.5-1.5); MetHb 0.3 % (0.0-1.5); O2Hb 97.5 % (94.0-97.0); SITE, ABG Right Radial; VENT MODE, BG Nasal Cannula
[2021-03-30] MEDS ORDERED: POTA20TA83 PO (11:42)
[2021-03-30] MEDS ORDERED: WARF3TAB59 PO (11:42)
[2021-03-30] MEDS ORDERED: FURO-144 PO (11:42)
[2021-03-30] MEDS ORDERED: SPIR25TA6 PO (11:42)
[2021-03-30 16:00] VITALS: BP 122/64
--- NOTE | 2021-03-30 16:21 | NUR ---
MS RN NOTES: BED BATH COMPLETED BY FELTING MACHINE OPERATOR HELPER. HAIR WASH COMPLETED BY THIS NURSE.
--- NOTE | 2021-03-30 18:50 | NUR ---
RN NOTES PER CM, ROAD ENGINEER FREIGHT TIME IS AT 1999. EXITCARE INITIATED AND WILL ENDORSE TO TUBE HEATER RN FOR COMPLETION.
--- NOTE | 2021-03-30 20:06 | NUR ---
Patient left at 1805 via ambulance accompanied by 2 wool spotter in stable condition. All belongings accounted for and belongings list signed by pt. Amaya hoang and IV removed. Patient tolerated procedure well. Vitals upon d/c 109/81, 63, 18, 98.0, o2 100% ON 2l nc. report and d/c paperwork given to wool spotter. Patient A&Ox3 -mentation at baseline. No signs of distress. Addendum: 03/31/21 at 0339 by BENNY KOENIG RN Correction *[id number]* not [id number]
[2021-03-31] MEDS: IPRATROPIUM NEB FS 0.5 MG/2.5 ML AMPUL.NEB NEB SCH (01:30)
[2021-03-31] MEDS ORDERED: FUROSEMIDE 40 MG TABLET PO SCH (09:00)
== END 2021-03-30 20:05 | disposition home or self-care (01) | DRG 291 ==
LOC: ER 20:37 → TELE 03-25 02:07 → MED 03-29 11:57
PROVIDERS: ADMIT Hospitalist; ATTEND Internal Medicine
DX: I11.0 Hypertensive heart disease with heart failure (principal); R53.2 Functional quadriplegia; J96.01 Acute respiratory failure with hypoxia; J90 Pleural effusion, not elsewhere classified; D68.59 Other primary thrombophilia; J98.11 Atelectasis; E22.2 Syndrome of inappropriate secretion of antidiuretic hormone; I50.9 Heart failure, unspecified; Z20.822 Contact with and (suspected) exposure to COVID-19; Z79.01 Long term (current) use of anticoagulants; Z79.84 Long term (current) use of oral hypoglycemic drugs; Z79.899 Other long term (current) drug therapy; Z87.440 Personal history of urinary (tract) infections; E11.65 Type 2 diabetes mellitus with hyperglycemia; I49.5 Sick sinus syndrome; I48.91 Unspecified atrial fibrillation
CPT/HCPCS: 31720; 36415; 36600; 71045-TC; 76604-TC; 80048-TC; 80053-TC; 83735-TC; 83880; 84100-TC; 84132-TC; 84300-TC; 84484-TC; 85025-TC; 85610-TC; 85730-TC; 87081-TC; 93307-TC; 94799-TC; 97112-TC; 97530-TC; C9803; G0378; J1940; J3475; J3490; J7050; J7512

== ENCOUNTER 2021-08-14 04:43 | Inpatient (IN) | payer MEDICARE, OTHER ==
[~2021-08-14] VITALS: Ht 157.5 cm; Wt 80.3 kg
[~2021-08-14 04:43] MED LIST changes: -CARV3.122 PO; -CEPH500C2 PO; +FURO-144 PO; -POLY17PO4 PO; +POTA20TA83 PO
--- NOTE | 2021-08-14 04:48 | NUR ---
[id number] FROM HOME C/O SOB. RA 85%, ON NON REBREATHER SATTING 97% 15L. PATIENT ON MONITOR IN BED 08 AND POX, AWAITING MD HENDERSON.
--- NOTE | 2021-08-14 04:55 | NUR ---
RT Notes Pt placed on BIPAP via M size full mask on ordered Setting IPAP 18, EPAP 5, rate 14, FIO2 40%. Alarms set and audible. BIPAP plugged into red outlet. Heladiog at beside. Will cont to monitor. Addendum: 08/14/21 at 0555 by EMELY BOATENG RT Amended: Links added.
[2021-08-14] MEDS ORDERED: FUROSEMIDE 40 MG/4 ML VIAL ONE (04:57)
[2021-08-14] MEDS ORDERED: FUROSEMIDE 40 MG/4 ML VIAL IV ONE (05:00)
[2021-08-14 05:09] LABS: BASOPHILS # (AUTO) 0.1 K/uL (0.0-0.2); BASOPHILS % (AUTO) 0.9 % (0.0-2.0); EOSINOPHILS % (AUTO) 5.9 % (0.0-6.0); HEMATOCRIT 34 % (33-45); HEMOGLOBIN 11.1 g/dL (11.5-14.8); LYMPHOCYTES # (AUTO) 1.5 K/uL (0.8-4.8); LYMPHOCYTES % (AUTO) 24.7 % (20.0-44.0); MEAN CORPUSCULAR HGB CONC 33 g/dl (31.0-36.0); MEAN CORPUSCULAR VOLUME 90 fL (82-100); MONOCYTES # (AUTO) 0.7 K/uL (0.1-1.30); MONOCYTES % (AUTO) 11.1 % (2.0-12.0); NEUTROPHILS # (AUTO) 3.5 K/uL (1.8-8.9); NEUTROPHILS % (AUTO) 57.4 % (43.0-81.0); PLATELET COUNT (AUTO) 275 K/uL (150-450); RED BLOOD CELL COUNT(AUTO) 3.77 MIL/uL (4.0-5.2); WHITE BLOOD COUNT (AUTO) 6.1 K/uL (4.3-11.0)
[2021-08-14 05:38] LABS: CALCIUM, SERUM 8.8 mg/dL (8.5-10.1); CARBON DIOXIDE 33 mmol/L (21-32); CHLORIDE 85 mmol/L (98-107); CREATININE 0.5 mg/dL (0.6-1.3); GLUCOSE 128 mg/dL (74-106); POTASSIUM 5.4 mmol/L (3.5-5.1); UREA NITROGEN, BLOOD 8 mg/dL (7-18)
[2021-08-14 05:40] LABS: SODIUM SERUM 117 mmol/L (136-145)
[2021-08-14 05:41] LABS: ABG BASE EXCESS 6.9 mmol/L; ABG PCO2 67.7 mmHg (35.0-45.0); ABG PO2 146.1 mmHg (75.0-100.0); COHb 0.3 % (0.5-1.5); MetHb 0.3 % (0.0-1.5); O2Hb 98.2 % (94.0-97.0); SITE, ABG Left Radial
--- NOTE | 2021-08-14 05:42 | NUR ---
ROSIO Gomez, MADE AWARE
--- NOTE | 2021-08-14 05:45 | NUR ---
RT Notes BIPAP setting change per MD order post ABG result: IPAP 20, rate 16 Addendum: 08/14/21 at 0556 by EMELY BOATENG RT Amended: Links added.
--- NOTE | 2021-08-14 06:22 | NUR ---
URINE SAMPLE COLLECTED AND SENT TO LAB
[2021-08-14] MEDS ORDERED: MAG HYDROX/AL HYDROX/SIMETH 30 ML UDC PO PRN (06:30)
[2021-08-14] MEDS ORDERED: ONDANSETRON HCL/PF 4 MG/2 ML VIAL IVP PRN (06:30)
[2021-08-14] MEDS ORDERED: Z GUARD REMEDY 4 OZ OINT TP PRN (06:30)
[2021-08-14] MEDS ORDERED: MAGNESIUM HYDROXIDE 30 ML UDC PO PRN (06:30)
--- NOTE | 2021-08-14 07:07 | NUR ---
covid swab done and sent to lab
[2021-08-14] MEDS ORDERED: WARF3TAB59 PO (07:42)
[2021-08-14] MEDS ORDERED: FURO40TA5 PO (07:42)
[2021-08-14] MEDS ORDERED: SPIR25TA6 PO (07:42)
[2021-08-14] MEDS ORDERED: CARV6.252 PO (07:42)
[2021-08-14] MEDS ORDERED: METF-881 PO (07:42)
--- NOTE | 2021-08-14 08:06 | NUR ---
BIPAP SETTINGS: IPAP: 20 EDAP: 5 RATE: 16 O2: 40% I-TIME: 1.00 RISE:2
[2021-08-14] MEDS ORDERED: ENOXAPARIN SODIUM 40 MG/0.4 ML DISP.SYRIN SQ SCH (08:30)
[2021-08-14] MEDS ORDERED: PANTOPRAZOLE 40 MG TABLET.DR PO ONE (08:49)
[2021-08-14] MEDS ORDERED: ENOXAPARIN SODIUM 40 MG/0.4 ML DISP.SYRIN SQ ONE (08:49)
--- NOTE | 2021-08-14 08:55 | NUR ---
Leonel tineo in [facility] - 08/14/21 at 0902 by REGAN bed given 257
--- NOTE | 2021-08-14 09:02 | NUR ---
bed given 252
--- NOTE | 2021-08-14 09:33 | NUR ---
REPORT GIVEN TO LING FOR LINNEA
[2021-08-14] MEDS: PANTOPRAZOLE 40 MG TABLET.DR PO SCH (10:10)
--- NOTE | 2021-08-14 10:25 | NUR ---
COMPANY DANCER NOTES ADMITTED 89Y/OLD FEMALE AT THIS TIME ON BIPAP SETTING IS 20/5, FIO2=40%, HR 50, ON Dx OF CHF, AND HYPONATREMIA. PATIENT A/O X3 WITH FORGETFULNESS . VSS. SKIN ASSESSMENT DONE, PATIENT HAS SMALL SKIN TER ON UPPER CHEST, PICTURE TAKEN. . PATIENT HAS COLEMAN, DRAINING LIGHT YELLOW OUTPUT. BS-96 MG/DL. PATIENT BED BOUND. IV ACCESS ON LEFT FOREARM INTACT. STARTED MG PLACEMENT, AND DUE MEDICATION, CALL LIGHT WITHIN TO REACH. WILL FOLLOW UP.
[2021-08-14] MEDS: IPRATROPIUM NEB FS 0.5 MG/2.5 ML AMPUL.NEB NEB SCH ×3 (10:30→20:49)
--- NOTE | 2021-08-14 10:40 | NUR ---
PT TRANSFERRED TO ICU VIA GURNEY WITH ACLS PROTOCOLS IN PLACE ACCOMPANIED BY RT.
[2021-08-14 11:00] VITALS: BP 108/49
[2021-08-14 12:00] VITALS: BP 121/55
[2021-08-14 12:01] VITALS: BP 121/55
--- NOTE | 2021-08-14 12:45 | NUR ---
RN NOTES ABG DONE, AND PER RESULT PATIENT ON N2-2LNC. PATIENT TOLERATED LUNCH WELL SELF.
[2021-08-14 12:47] LABS: ABG BASE EXCESS 7.3 mmol/L; ABG OXYGEN SATURATION 98.8 % (92.0-98.5); ABG PCO2 65.3 mmHg (35.0-45.0); ABG PH 7.347 (7.350-7.450); ABG PO2 136.2 mmHg (75.0-100.0); AaDO2 44.7 mmHg; COHb 0.5 % (0.5-1.5); MetHb 0.3 % (0.0-1.5); SITE, ABG Right Radial
[2021-08-14] MEDS: HYDROCORTISONE SOD SUCCINATE 100 MG/2 ML VIAL IV SCH ×3 (12:49→20:55)
[2021-08-14] MEDS: LEVOFLOXACIN 500 MG /D5W 100ML 500 MG in PREMIX 1 EA IV SCH (12:49)
[2021-08-14] MEDS: Magnesium 1GM/D5W 100ML PREMIX 100 ML IV SCH ×2 (12:49→14:01)
[2021-08-14] MEDS: predniSONE 5 MG TABLET PO SCH (12:50)
[2021-08-14] MEDS: METFORMIN XR 500 MG TAB.SR.24H PO SCH (12:50)
--- NOTE | 2021-08-14 14:13 | NUR ---
RT PER DR MENCHACA PATIENT IS TO GO ON NOC BIPAP 15/5 AND KEEP SATURATION AT 90%.
[2021-08-14 16:00] VITALS: BP 107/66
[2021-08-14] MEDS ORDERED: WARFARIN SODIUM 1 MG TABLET PO SCH (17:00)
[2021-08-14] MEDS: FUROSEMIDE 40 MG/4 ML VIAL IV SCH (17:45)
[2021-08-14] MEDS: WARFARIN SODIUM 1 MG TABLET PO SCH ×2 (18:39→19:00)
--- NOTE | 2021-08-14 19:08 | NUR ---
RN NOTES PATIENT REFUSED TO TAKE COUMADIN BECAUSE PATIENT THINKING DOSAGE TO MUCH AND SHE WILL BLEED. NOTIFIED DR BARBER AND TO ORDER WAS HOLD MEDICATION. ORDER TAKEN AND CARRIED OUT.
--- NOTE | 2021-08-14 19:30 | NUR ---
RN OPENING NOTES RECEIVED PT IN BED, AWAKE, A/O X3. PT IS VERBALLY RESPONSIVE BUT CAN BE FORGETFUL, KEPT ASKING ABOUT THE SAME THING. ON O2 VIA NC AT 3L, TOLERATING WELL. 02 SAT AT 96%. IV LINE NOTED AT LFA 20G, INTACT AND PATENT, FLUSHED WITH NS. NO INFILTRATION NOTED. PATIENT HAS COLEMAN, DRAINING WELL WITH LIGHT YELLOW COLORED URINE NOTED. ALL SAFETY PRECAUTIONS IMPLEMENTED. BED IN LOWEST POSITION, LOCKED. BED ALARM ON. CALL LIGHT WITHIN REACH. WILL CONTINUE TO MONITOR.
[2021-08-14 20:00] VITALS: BP 109/84
[2021-08-14] MEDS ORDERED: ENOXAPARIN SODIUM 60 MG/0.6 ML DISP.SYRIN SQ SCH (21:00)
--- NOTE | 2021-08-14 21:20 | NUR ---
RN NOTE PATIENT REFUSED LOVENOX. EXPLAINED RISKS AND BENEFITS, PT STILL REFUSED MEDICATION.
--- NOTE | 2021-08-14 23:33 | NUR ---
RN NOTES PT ASKED FOR HER BIPAP TO BE REMOVED. SHE SAID IT'S UNCOMFORTABLE. PUT PT BACK ON HER NC. INFORMED RT.
[2021-08-15] VITALS: BP 122/52
[2021-08-15] MEDS: IPRATROPIUM NEB FS 0.5 MG/2.5 ML AMPUL.NEB NEB SCH ×4 (01:22→20:03)
[2021-08-15 04:00] VITALS: BP 114/44
[2021-08-15] MEDS: HYDROCORTISONE SOD SUCCINATE 100 MG/2 ML VIAL IV SCH (04:08)
[2021-08-15 06:51] LABS: BASOPHILS % (AUTO) 0.3 % (0.0-2.0); EOSINOPHILS % (AUTO) 0.1 % (0.0-6.0); HEMATOCRIT 33 % (33-45); HEMOGLOBIN 11.1 g/dL (11.5-14.8); LYMPHOCYTES # (AUTO) 0.9 K/uL (0.8-4.8); LYMPHOCYTES % (AUTO) 30.9 % (20.0-44.0); MEAN CORPUSCULAR HGB CONC 34 g/dl (31.0-36.0); MEAN CORPUSCULAR VOLUME 89 fL (82-100); MONOCYTES # (AUTO) 0.2 K/uL (0.1-1.30); MONOCYTES % (AUTO) 6.5 % (2.0-12.0); NEUTROPHILS # (AUTO) 1.8 K/uL (1.8-8.9); NEUTROPHILS % (AUTO) 62.2 % (43.0-81.0); PLATELET COUNT (AUTO) 252 K/uL (150-450); RED BLOOD CELL COUNT(AUTO) 3.71 MIL/uL (4.0-5.2); WHITE BLOOD COUNT (AUTO) 2.9 K/uL (4.3-11.0)
--- NOTE | 2021-08-15 07:19 | NUR ---
RN CLOSING NOTES NO SIGNIFICANT CHANGES THROUGHOUT THE SHIFT. PT IS A/O X3, VERBALLY RESPONSIVE BUT CAN BE FORGETFUL AND WILL ASK SAME QUESTIONS OVER AND OVER. CURRENTLY ON O2 VIA NC AT 3L, TOLERATING WELL. O2 SAT AT 100%. NO SOB OR DISTRESS NOTED. PT DENIES PAIN. IV LINE NOTED AT LFA 20G, INTACT AND PATENT, FLUSHES WELL. NO INFILTRATION NOTED. PATIENT HAS FC, DRAINING WELL WITH LIGHT YELLOW COLORED URINE NOTED. ALL DUE MEDS GIVEN. ALL NEEDS ATTENDED TO. KEPT PT CLEAN AND DRY. TURNED AND REPOSITIONED. ALL SAFETY PRECAUTIONS IMPLEMENTED. BED IN LOWEST POSITION, LOCKED. BED ALARM ON. CALL LIGHT WITHIN REACH. WILL ENDORSE TO AM SHIFT NURSE FOR LINNEA.
[2021-08-15 07:57] LABS: ALBUMIN 3.1 g/dL (3.4-5.0); BILIRUBIN,TOTAL 0.4 mg/dL (0.2-1.0); CALCIUM, SERUM 8.6 mg/dL (8.5-10.1); CREATININE 0.6 mg/dL (0.6-1.3); MAGNESIUM 1.8 mg/dL (1.8-2.4); PHOSPHORUS 3.6 mg/dL (2.5-4.9); TOTAL PROTEIN, SERUM 6.3 g/dL (6.4-8.2)
[2021-08-15 08:00] VITALS: BP 137/64
--- NOTE | 2021-08-15 08:04 | NUR ---
RN OPENING NOTES RECEIVED PATIENT FROM OUTGOING NURSE FOR CONTINUITY OF CARE. PATIENT IN BED, AO X 3, IN NO S/SX OF ACUTE DISTRESS AT THIS TIME. PATIENT IS ON HEART MONITOR ALEX. ON 3 LITER NC, SATURATION AT 100%, IV SITE AT RIGHT AC 22G,LR 100ML/HR. PATENT AND FLUSHING WELL, NO S/S OF INFECTION OR INFILTRATION. SAFETY MEASURES IMPLEMENTED. PATIENT BED ALARM IS ON. HEAD OF BED ELEVATED. BED IS LOCKED, IN LOWEST POSITION AND SIDE RAILS UP. CALL LIGHT WITHIN REACH OF THE PATIENT. WILL CONTINUE TO MONITOR AND REASSESS FOR ANY CHANGES.
[2021-08-15 08:40] LABS: ABG BASE EXCESS 8.7 mmol/L; ABG PCO2 56.2 mmHg (35.0-45.0); ABG PH 7.413 (7.350-7.450); ABG PO2 82.8 mmHg (75.0-100.0); COHb 0.1 % (0.5-1.5); MetHb 0.4 % (0.0-1.5); O2Hb 95.5 % (94.0-97.0); SITE, ABG Left Radial; VENT MODE, BG 2 LPM NC
[2021-08-15] MEDS: FUROSEMIDE 40 MG/4 ML VIAL IV SCH (09:03)
[2021-08-15] MEDS: METFORMIN XR 500 MG TAB.SR.24H PO SCH (09:03)
[2021-08-15] MEDS: predniSONE 5 MG TABLET PO SCH (09:03)
[2021-08-15] MEDS: PANTOPRAZOLE 40 MG TABLET.DR PO SCH (09:03)
[2021-08-15 12:00] VITALS: BP 118/76
[2021-08-15] MEDS: LEVOFLOXACIN 500 MG /D5W 100ML 500 MG in PREMIX 1 EA IV SCH (12:05)
[2021-08-15 16:00] VITALS: BP 93/44
[2021-08-15] MEDS: WARFARIN SODIUM 2 MG TABLET PO SCH (18:14)
--- NOTE | 2021-08-15 19:30 | NUR ---
RN OPENING NOTES RECEIVED PT IN BED, AWAKE, IN SEMI GARLAND'S POSITION. PT IS A/O X3. RESPONDS TO QUESTIONS ACCORDINGLY. PT HAS A BIT OF DIFFICULTY HEARING. ON O2 VIA NC AT 3L, TOLERATING WELL. NO S/SX OF ACUTE DISTRESS NOTED AT THIS TIME. 02 SAT AT 100%. IV LINE NOTED AT LFA 20G, INTACT AND PATENT, FLUSHED WITH NS. NO INFILTRATION OR INFECTION NOTED. PATIENT HAS FC, DRAINING WELL WITH LIGHT YELLOW COLORED URINE NOTED. ALL SAFETY PRECAUTIONS IMPLEMENTED. BED IN LOWEST POSITION, LOCKED. BED ALARM ON. CALL LIGHT WITHIN REACH. WILL CONTINUE TO MONITOR AND REASSESS FOR ANY CHANGES.
[2021-08-15 20:00] VITALS: BP 109/51
--- NOTE | 2021-08-15 20:28 | NUR ---
RN CLOSING NOTES NO SIGNIFICANT CHANGES THROUGHOUT THE SHIFT. PT IS A/O X3, VERBALLY RESPONSIVE BUT CAN BE FORGETFUL AND WILL ASK SAME QUESTIONS OVER AND OVER. CURRENTLY ON O2 VIA NC AT 3L, TOLERATING WELL. O2 SAT AT 100%. NO SOB OR DISTRESS NOTED. PT DENIES PAIN. IV LINE NOTED AT LFA 20G, INTACT AND PATENT, FLUSHES WELL. NO INFILTRATION NOTED. PATIENT HAS FC, DRAINING WELL WITH LIGHT YELLOW COLORED URINE NOTED. ALL DUE MEDS GIVEN. ALL NEEDS ATTENDED TO. KEPT PT CLEAN AND DRY. TURNED AND REPOSITIONED. ALL SAFETY PRECAUTIONS IMPLEMENTED. BED IN LOWEST
--- NOTE | 2021-08-15 20:50 | NUR ---
RT NOTE PATIENT IS REFUSING TO USE BIPAP TONIGHT. EXPLAINED THE USE OF BIPAP AND ITS BENEFITS TO PATIENT BUT PATIENT STILL REFUSING TO WEAR IT. PRIMARY NURSE NOTIFIED. NO RESPIRATORY DISTRESS NOTED AT THIS TIME. PATIENT IS STABLE ON 2LPM.
[2021-08-16] VITALS: BP 112/46
[2021-08-16] MEDS: IPRATROPIUM NEB FS 0.5 MG/2.5 ML AMPUL.NEB NEB SCH ×4 (01:50→20:03)
[2021-08-16 04:00] VITALS: BP 103/41
[2021-08-16 06:46] LABS: BASOPHILS % (AUTO) 0.8 % (0.0-2.0); EOSINOPHILS % (AUTO) 0.8 % (0.0-6.0); HEMATOCRIT 32 % (33-45); HEMOGLOBIN 10.7 g/dL (11.5-14.8); LYMPHOCYTES # (AUTO) 1.5 K/uL (0.8-4.8); LYMPHOCYTES % (AUTO) 26.1 % (20.0-44.0); MEAN CORPUSCULAR HGB CONC 34 g/dl (31.0-36.0); MEAN CORPUSCULAR VOLUME 89 fL (82-100); MONOCYTES # (AUTO) 0.7 K/uL (0.1-1.30); MONOCYTES % (AUTO) 11.1 % (2.0-12.0); NEUTROPHILS # (AUTO) 3.6 K/uL (1.8-8.9); NEUTROPHILS % (AUTO) 61.2 % (43.0-81.0); PLATELET COUNT (AUTO) 255 K/uL (150-450); RED BLOOD CELL COUNT(AUTO) 3.57 MIL/uL (4.0-5.2); WHITE BLOOD COUNT (AUTO) 5.9 K/uL (4.3-11.0)
--- NOTE | 2021-08-16 06:56 | NUR ---
RN CLOSING NOTES PT REMAINED STABLE THROUGHOUT THE SHIFT. PT IS A/O X3, VERBALLY RESPONSIVE , HAS A LITTLE BIT OF DIFFICULTY HEARING. CURRENTLY ON O2 VIA NC AT 3L, TOLERATING WELL. O2 SAT AT 99%. NO SOB OR DISTRESS NOTED. PT DENIES PAIN. IV LINE NOTED AT LFA 20G, INTACT AND PATENT. NO INFILTRATION NOTED. PATIENT HAS FC, DRAINING WELL WITH LIGHT YELLOW COLORED URINE NOTED. ALL NEEDS ATTENDED TO. KEPT PT CLEAN AND DRY. TURNED AND REPOSITIONED. ALL SAFETY PRECAUTIONS IMPLEMENTED. BED IN LOWEST POSITION, LOCKED. BED ALARM ON. CALL LIGHT WITHIN REACH. WILL ENDORSE TO AM SHIFT NURSE FOR LINNEA.
--- NOTE | 2021-08-16 07:10 | NUR ---
RN NOTES RECEIVED PT ON BED, AWAKE, PT IS A/O X2-3. RESPONDS TO QUESTIONS ACCORDINGLY. PT HAS A BIT OF DIFFICULTY HEARING. ON O2 VIA NC AT 3L, TOLERATING WELL. NO S/SX OF ACUTE DISTRESS NOTED AT THIS TIME. IV LINE NOTED AT LFA 20G, INTACT AND PATENT, FLUSHED WITH NS. NO INFILTRATION OR INFECTION NOTED. COLEMAN DRAINING TO GRAVITY, WITH LIGHT YELLOW COLORED URINE NOTED. ALL SAFETY PRECAUTIONS IMPLEMENTED. BED IN LOWEST POSITION, LOCKED. BED ALARM ON. CALL LIGHT WITHIN REACH. WILL CONTINUE TO MONITOR.
[2021-08-16 07:16] LABS: CALCIUM, SERUM 9.2 mg/dL (8.5-10.1); CREATININE 1.1 mg/dL (0.6-1.3); MAGNESIUM 1.7 mg/dL (1.8-2.4); PHOSPHORUS 3.1 mg/dL (2.5-4.9)
[2021-08-16 08:00] VITALS: BP 104/42
[2021-08-16] MEDS: predniSONE 5 MG TABLET PO SCH ×2 (08:21→08:51)
[2021-08-16] MEDS: PANTOPRAZOLE 40 MG TABLET.DR PO SCH (08:22)
[2021-08-16] MEDS: FUROSEMIDE 40 MG/4 ML VIAL IV SCH (08:22)
[2021-08-16] MEDS: METFORMIN XR 500 MG TAB.SR.24H PO SCH (08:26)
[2021-08-16] MEDS ORDERED: MAGNESIUM OXIDE 400 MG TABLET PO ONE (10:30)
[2021-08-16] MEDS: LEVOFLOXACIN 500 MG /D5W 100ML 500 MG in PREMIX 1 EA IV SCH (10:46)
[2021-08-16 12:00] VITALS: BP 99/40
--- NOTE | 2021-08-16 12:00 | NUR ---
RN NOTES PT REFUSES MEDS AT TIMES , REINFORCE TEACHING AND EDUCATION .
[2021-08-16 16:00] VITALS: BP 107/44
[2021-08-16] MEDS: WARFARIN SODIUM 2 MG TABLET PO SCH (16:14)
--- NOTE | 2021-08-16 18:39 | NUR ---
RN NOTES NO SIGNIFICANT CHANGES NOTED ON THIS SHIFT, WILL ENDORSE TO EMBOSSING TOOLSETTER NURSE FOR CONTINUITY OF CARE .
[2021-08-16 20:00] VITALS: BP 111/60
--- NOTE | 2021-08-16 20:17 | NUR ---
RN NOTE PATIENT ALERT AND ORIENTED X3, WITH PERIODS OF FORGETFULNESS. DENIES ANY PAIN. REFUSES NOC BIPAP AT THIS TIME, RISKS AND BENEFITS EXPLAINED. STILL STRONGLY REFUSED. CONTINUES ON O2 3L VIA NASAL CANNULA. COLEMAN CATH IN PLACE, DRAINING VIA GRAVITY. IV ACCESS ON LEFT FA #20 PATENT AND INTACT. BED LOCKED AND IN LOWEST POSITION. CALL LIGHT WITHIN REACH. ALL NEEDS ANTICIPATED.
[2021-08-17] VITALS: BP 115/72
[2021-08-17] MEDS: IPRATROPIUM NEB FS 0.5 MG/2.5 ML AMPUL.NEB NEB SCH ×4 (02:03→20:27)
[2021-08-17 04:00] VITALS: BP 139/57
--- NOTE | 2021-08-17 06:49 | NUR ---
RN NOTE PATIENT IN BED RESTING. ON O2 2L VIA NASAL CANNULA. NO SOB NOTED. TURNED AND REPOSITION. KEPT CLEAN AND DRY. NO SIGNIFICANT CHANGES DURING THIS SHIFT. WILL ENDORSE TO AM SHIFT.
--- NOTE | 2021-08-17 07:37 | NUR ---
RN OPENING NOTES PT IS IN BED RESTING A/O X4, PT ON 2L VIA NC SATING AT 100%. NO S/S OF RESP DISTRESS OR C/O PAIN AT THIS TIME. ALL SAFETY MEASURES IN PLACE, BED IN LOWEST LOCKED POSITION, CALL LIGHT WITHIN REACH. WILL CONTINUE TO MONITOR THROUGHOUT SHIFT.
[2021-08-17] MEDS: PANTOPRAZOLE 40 MG TABLET.DR PO SCH (07:55)
[2021-08-17 08:00] VITALS: BP 114/45
[2021-08-17] MEDS: LEVOFLOXACIN (250MG) 250 MG TABLET PO SCH (09:11)
[2021-08-17] MEDS: METFORMIN XR 500 MG TAB.SR.24H PO SCH (09:12)
[2021-08-17] MEDS: FUROSEMIDE 40 MG/4 ML VIAL IV SCH (09:12)
[2021-08-17] MEDS: predniSONE 5 MG TABLET PO SCH (09:13)
[2021-08-17 12:00] VITALS: BP 117/40
[2021-08-17 16:00] VITALS: BP 105/51
[2021-08-17] MEDS: WARFARIN SODIUM 5 MG TABLET PO SCH (16:21)
--- NOTE | 2021-08-17 16:25 | NUR ---
RN NOTES PT REFUSED COUMADIN. DISCARDED MEDICINE.
--- NOTE | 2021-08-17 18:28 | NUR ---
RN CLOSING NOTES PT REMAINED STABLE THROUGHOUT THE SHIFT. PT IS A/O X3, VERBALLY RESPONSIVE CURRENTLY ON O2 VIA NC AT 1L, TOLERATING WELL. O2 SAT AT 94%. NO SOB OR DISTRESS NOTED. PT DENIES PAIN. IV LINE NOTED AT LFA 20G, INTACT AND PATENT. NO INFILTRATION NOTED. PATIENT HAS FC, DRAINING WELL WITH LIGHT YELLOW COLORED URINE NOTED. ALL NEEDS ATTENDED TO. KEPT PT CLEAN AND DRY. TURNED AND REPOSITIONED. ALL SAFETY MEASURES IN PLACE, CALL LIGHT WITHIN REACH. WILL ENDORSE TO ASSESSMENT MANAGER NURSE FOR LINNEA.
--- NOTE | 2021-08-17 19:35 | NUR ---
RN NOTES RECEIVED PATIENT ALERT ORIENTED X3, WITH CONFUSION, NEEDY,NON-COMPLIANT, A-FIB ON TELE MONITOR HR-68, NOT IN DISTRESS, CALL LIGHT WITHIN REACH, [id number], WILL CONTINUE TO MONITOR
[2021-08-17 20:00] VITALS: BP 127/59
[2021-08-18] MEDS: IPRATROPIUM NEB FS 0.5 MG/2.5 ML AMPUL.NEB NEB SCH ×4 (02:01→20:17)
[2021-08-18 04:00] VITALS: BP 114/52
--- NOTE | 2021-08-18 06:35 | NUR ---
REYNA NOTES AWAKE, REFUSED BLOOD DRAW , THE OTHER NURSE WHO SPEAK MINH Addendum: 08/18/21 at 0641 by BENNETT VICTORIA RN ACCIDENTALLY SAVED THIS NOTES
--- NOTE | 2021-08-18 06:38 | NUR ---
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 NEEDS ATTENDED
--- NOTE | 2021-08-18 07:30 | NUR ---
RN OPENING NOTE PT RESTING IN BED UPON ASSESSMENT. PT IS A/O X3, VERBALLY RESPONSIVE CURRENTLY ON O2 VIA NC AT 2L, TOLERATING WELL. O2 SAT AT 96%. NO SOB OR DISTRESS NOTED. PT DENIES PAIN. IV LINE NOTED AT ONEAL ML 18G, INTACT AND PATENT. NO INFILTRATION NOTED. PATIENT HAS FC, DRAINING WELL WITH LIGHT YELLOW COLORED URINE NOTED. ALL SAFETY MEASURES IN PLACE, CALL LIGHT WITHIN REACH. WILL CONTINUE TO MONITOR.
--- NOTE | 2021-08-18 07:51 | NUR ---
found in room air with 98% spo2 and no increase work of breathing noted. Addendum: 08/18/21 at 0753 by ANITRA BECK RT Amended: Links added.
[2021-08-18 08:00] VITALS: BP 106/53
[2021-08-18] MEDS: METFORMIN XR 500 MG TAB.SR.24H PO SCH (08:37)
[2021-08-18] MEDS: FUROSEMIDE 40 MG/4 ML VIAL IV SCH (08:37)
[2021-08-18] MEDS: LEVOFLOXACIN (250MG) 250 MG TABLET PO SCH (08:37)
[2021-08-18] MEDS: PANTOPRAZOLE 40 MG TABLET.DR PO SCH (08:37)
[2021-08-18] MEDS: predniSONE 5 MG TABLET PO SCH (08:37)
[2021-08-18 12:00] VITALS: BP 111/56
[2021-08-18 16:00] VITALS: BP 104/42
[2021-08-18] MEDS: WARFARIN SODIUM 5 MG TABLET PO SCH (16:49)
--- NOTE | 2021-08-18 17:15 | NUR ---
RN NOTE PT REFUSED TO TAKE WARFARIN AFTER STATING SHE WAS OK WITH TAKING IT. SCANNED AND SAVED BUT DID NOT ADMINISTER WARFARIN DUE TO PT REFUSING.
--- NOTE | 2021-08-18 18:37 | NUR ---
RN CLOSING NOTE PT REMAINED STABLE DURING SHIFT. PT RESTING IN BED UPON ASSESSMENT. PT IS A/O X3, VERBALLY RESPONSIVE CURRENTLY ON O2 VIA NC AT 2L, TOLERATING WELL. O2 SAT AT 94%. NO SOB OR DISTRESS NOTED. PT DENIES PAIN. IV LINE NOTED AT ONEAL ML 18G, INTACT AND PATENT. NO INFILTRATION NOTED. PATIENT HAS FC, DRAINING WELL WITH LIGHT YELLOW COLORED URINE NOTED. ALL SAFETY MEASURES IN PLACE, CALL LIGHT WITHIN REACH. WILL ENDORSE TO ROCK DUST SPRAYER RN.
--- NOTE | 2021-08-18 19:20 | NUR ---
RN NOTE RECEIVED PATIENT IN BED, AO X 3, IN NO ACUTE DISTRESS AT THIS TIME. RESPIRATIONS UNLABORED, SATURATION AT 99% ON 0.5 LPM VIA NC, AFIB ON THE MONITOR, HR IS 74. NOTED ONEAL MIDLINE, PATENT AND FLUSHING WELL, NO S/S OF INFECTION.COLEMAN CATHETER CONNECTED TO URINE BAG IN PLACE, DRAINING TO A CLEAR, YELLOW OUTPUT. SAFETY MEASURES IMPLEMENTED. PATIENT BED ALARM IS ON. HEAD OF BED ELEVATED. BED IS LOCKED, IN LOWEST POSITION AND SIDE RAILS UP. CALL LIGHT WITHIN REACH OF THE PATIENT. WILL CONTINUE TO MONITOR AND REASSESS FOR ANY CHANGES.
[2021-08-18 20:00] VITALS: BP 98/64
[2021-08-18] MEDS: ACETAMINOPHEN 325 MG TABLET PO PRN ×2 (21:10→23:44)
[2021-08-19] VITALS: BP 124/57
[2021-08-19] MEDS: IPRATROPIUM NEB FS 0.5 MG/2.5 ML AMPUL.NEB NEB SCH ×4 (01:30→19:30)
[2021-08-19 04:00] VITALS: BP 100/41
--- NOTE | 2021-08-19 06:08 | NUR ---
RN NOTE PATIENT REFUSED BLOOD DRAW, EDUCATED AND EXPLAINED REGARDING IMPORTANCE OF LAB TEST. PT STILL REFUSED, [employer] WILL TRY AGAIN LATER.
--- NOTE | 2021-08-19 07:30 | NUR ---
RN OPENING NOTE PATIENT ENDORSED BY OUTGOING NURSE FOR CONTINUITY OF CARE. PT RESTING IN BED UPON ASSESSMENT. PT IS A/O X3, VERBALLY RESPONSIVE CURRENTLY ON O2 VIA NC AT 1L, TOLERATING WELL. O2 SAT AT 96%. NO SOB OR DISTRESS NOTED. PT DENIES PAIN. IV LINE NOTED AT ONEAL ML 18G, INTACT AND PATENT. NO INFILTRATION NOTED. PATIENT HAS FC, DRAINING WELL WITH LIGHT YELLOW COLORED URINE NOTED. ALL SAFETY MEASURES IN PLACE, CALL LIGHT WITHIN REACH. WILL CONTINUE TO MONITOR.
[2021-08-19 08:00] VITALS: BP 130/67
[2021-08-19] MEDS: predniSONE 5 MG TABLET PO SCH (08:19)
[2021-08-19] MEDS: PANTOPRAZOLE 40 MG TABLET.DR PO SCH (08:20)
[2021-08-19] MEDS: METFORMIN XR 500 MG TAB.SR.24H PO SCH (08:20)
[2021-08-19] MEDS: FUROSEMIDE 40 MG/4 ML VIAL IV SCH (08:28)
[2021-08-19 11:51] LABS: BASOPHILS # (AUTO) 0.1 K/uL (0.0-0.2); EOSINOPHILS % (AUTO) 6.3 % (0.0-6.0); HEMATOCRIT 34 % (33-45); LYMPHOCYTES # (AUTO) 1.4 K/uL (0.8-4.8); LYMPHOCYTES % (AUTO) 23.8 % (20.0-44.0); MEAN CORPUSCULAR HGB CONC 33 g/dl (31.0-36.0); MEAN CORPUSCULAR VOLUME 90 fL (82-100); MONOCYTES # (AUTO) 0.6 K/uL (0.1-1.30); MONOCYTES % (AUTO) 10.8 % (2.0-12.0); NEUTROPHILS # (AUTO) 3.5 K/uL (1.8-8.9); NEUTROPHILS % (AUTO) 58.1 % (43.0-81.0); PLATELET COUNT (AUTO) 252 K/uL (150-450); RED BLOOD CELL COUNT(AUTO) 3.74 MIL/uL (4.0-5.2)
[2021-08-19 11:53] LABS: CALCIUM, SERUM 8.9 mg/dL (8.5-10.1); CREATININE 1.2 mg/dL (0.6-1.3); POTASSIUM 3.4 mmol/L (3.5-5.1)
[2021-08-19 12:00] VITALS: BP 104/42
--- NOTE | 2021-08-19 12:05 | NUR ---
LAB CALLED AND REPORT BUN 27 CO2 40 GLUCOSE 180. 1208 CALLED DOCTOR PEDRITO AND REPORT LAB RESULT. 1215 Dr[address] MAJOR CALLED BACK AND ASKED ABOUT SODIUM AND POTASSIUM LEVEL SINCE THE SODIUM WAS 130 AND POTASSIUM 3.7 ORDERED 40 MAQ POTASSIUM PO.
[2021-08-19] MEDS ORDERED: POTASSIUM CHLORIDE 20 MEQ TAB.PRT.SR PO ONE (12:30)
[2021-08-19 16:00] VITALS: BP 109/47
[2021-08-19] MEDS: WARFARIN SODIUM 5 MG TABLET PO SCH (17:17)
--- NOTE | 2021-08-19 19:08 | NUR ---
RN CLOSING NOTE PT REMAINED STABLE DURING SHIFT. PT RESTING IN BED UPON ASSESSMENT. PT IS A/O X3, VERBALLY RESPONSIVE CURRENTLY ON O2 VIA NC AT 0.5L, TOLERATING WELL. O2 SAT AT 96%. NO SOB OR DISTRESS NOTED. PT DENIES PAIN. IV LINE NOTED AT ONEAL ML 18G, INTACT AND PATENT. NO INFILTRATION NOTED. PATIENT HAS FC, DRAINING WELL WITH LIGHT YELLOW COLORED URINE NOTED. ALL SAFETY MEASURES IN PLACE, CALL LIGHT WITHIN REACH. WILL ENDORSE TO SWEATBAND FLANGER RN.
--- NOTE | 2021-08-19 19:30 | NUR ---
RN OPENING NOTES RECEIVED PATIENT IN BED, AO X 3, SHOWING NO S/SX OF ACUTE DISTRESS NOTED AT THIS TIME. RESPIRATIONS UNLABORED, SATURATION AT 94% ON 0.5 LPM VIA NC, AFIB ON THE MONITOR, HR IS IN 70s. NOTED ONEAL MIDLINE, PATENT AND FLUSHING WELL, NO S/S OF INFECTION. PT DENIES PAIN. COLEMAN CATHETER CONNECTED TO URINE BAG IN PLACE, DRAINING TO A CLEAR, YELLOW OUTPUT. SAFETY MEASURES IMPLEMENTED. PATIENT BED ALARM IS ON. HEAD OF BED ELEVATED. BED IS LOCKED, IN LOWEST POSITION AND SIDE RAILS UP. CALL LIGHT WITHIN REACH OF THE PATIENT. WILL CONTINUE TO MONITOR AND REASSESS FOR ANY CHANGES.
[2021-08-19 20:00] VITALS: BP 97/37
[2021-08-20] VITALS: BP 123/48
[2021-08-20] MEDS: IPRATROPIUM NEB FS 0.5 MG/2.5 ML AMPUL.NEB NEB SCH ×3 (01:08→07:35)
[2021-08-20 04:00] VITALS: BP 122/38
[2021-08-20 08:00] VITALS: BP 89/65
--- NOTE | 2021-08-20 08:01 | NUR ---
RT NOTE Pt differed treatment at this time. No SOB noted. REYNA Naqvi aware.
[2021-08-20] MEDS: PANTOPRAZOLE 40 MG TABLET.DR PO SCH (08:06)
[2021-08-20] MEDS: METFORMIN XR 500 MG TAB.SR.24H PO SCH (08:06)
[2021-08-20] MEDS: FUROSEMIDE 40 MG/4 ML VIAL IV SCH (08:07)
[2021-08-20] MEDS ORDERED: APIX5TAB PO (09:29)
[2021-08-20] MEDS: predniSONE 5 MG TABLET PO SCH (09:42)
--- NOTE | 2021-08-20 11:48 | NUR ---
RN NOTES PATIENT IN BED, ASLEEP, AO X 3, EASTY TO AROUSE, ABLE TO MAKE NEEDS KNOWN, NO SOB, SHOWING NO S/SX OF ACUTE DISTRESS NOTED AT THIS TIME. RESPIRATIONS UNLABORED, SATURATION AT 93% ON 0.5 LPM VIA NC, AFIB NOTED ON THE MONITOR, HR IS IN 70s. NOTED ONEAL MIDLINE, PATENT AND FLUSHING WELL, NO S/S OF INFECTION. PT DENIES PAIN. COLEMAN CATHETER CONNECTED TO URINE BAG IN PLACE, DRAINING TO A CLEAR, YELLOW OUTPUT. PT WILL KEEP F/C IN PLACE FOR TRANSFER TO HOME PER PT REQUEST SHE STATED SHE CAN NOT VOID ON HER OWN, SAFETY MEASURES IMPLEMENTED AND SAFE TRANSFER FROM BED TO [facility] OUT TO AMBULANCE, STABLE CONDITION, NO C/O PAIN, DAUGHTER AWARE OF TRANSFER TO HOME AND AWAITING AT HOME FOR THE TRANSFER, ALL MEDICATION MEDS GIVEN PER MD ORDERS, NO ADVERSE SIDE EFFECTS NOTED, OXYGEN PROVIDED WITH TRANSFER TO HOME, MD AND FAMILY AWARE OF TRANSFER D/C AT THIS TIME. ALL BELONGINGS CHECKED OFF AND PT REQUEST TO CARRY CELL PHONE IN HAND WITH HER DURING THE TRANSFER.
== END 2021-08-20 11:48 | disposition home health service (06) | DRG 291 ==
LOC: ER 04:57 → TRANSITION 08:09 → ICU 09:05 → TELE-TD 19:09 → TELE1 08-15 09:22
PROVIDERS: ADMIT Internal Medicine; ATTEND Internal Medicine
PROC: 05H633Z Insertion of Infusion Device into Left Subclavian Vein, Percutaneous Approach (ICD-10-PCS; principal; 2021-08-14)
PROC: B547ZZA Ultrasonography of Left Subclavian Vein, Guidance (ICD-10-PCS; 2021-08-14)
PROC: 5A09357 Assistance with Respiratory Ventilation, Less than 24 Consecutive Hours, Continuous Positive Airway Pressure (ICD-10-PCS; 2021-08-14)
DX: I11.0 Hypertensive heart disease with heart failure (principal); J96.01 Acute respiratory failure with hypoxia; I50.33 Acute on chronic diastolic (congestive) heart failure; J96.02 Acute respiratory failure with hypercapnia; E66.2 Morbid (severe) obesity with alveolar hypoventilation; D68.59 Other primary thrombophilia; N39.0 Urinary tract infection, site not specified; E22.2 Syndrome of inappropriate secretion of antidiuretic hormone; S21.112A Laceration without foreign body of left front wall of thorax without penetration into thoracic cavity, initial encounter; E27.40 Unspecified adrenocortical insufficiency; I48.91 Unspecified atrial fibrillation; E87.5 Hyperkalemia; E83.42 Hypomagnesemia; Z88.2 Allergy status to sulfonamides; E11.9 Type 2 diabetes mellitus without complications; Z74.09 Other reduced mobility; Z91.19 Patient's noncompliance with other medical treatment and regimen; X58.XXXA Exposure to other specified factors, initial encounter; Y93.9 Activity, unspecified; Y92.009 Unspecified place in unspecified non-institutional (private) residence as the place of occurrence of the external cause; Z79.84 Long term (current) use of oral hypoglycemic drugs; Z68.32 Body mass index [BMI] 32.0-32.9, adult
CPT/HCPCS: 36410; 36415; 36600; 71045-TC; 71250-TC; 80048-TC; 80053-TC; 80061-TC; 80202-TC; 82533; 82803-TC; 82962-TC; 83735-TC; 83880; 84100-TC; 84443-TC; 84484-TC; 85025-TC; 85610-TC; 87081-TC; 93307-TC; 94660; 94799-TC; 99082-TC; A4216; A6403; G0378; J1650; J1720; J1940; J1956; J3475; J7030; J7050; J7512